=== PATIENT | male | born 1940 | race Caucasian/White ===

== ENCOUNTER 2017-08-14 10:46 | Emergency (ER) | payer OTHER ==
[~2017-08-14] VITALS: Ht 165.1 cm; Wt 90.7 kg
[2017-08-14 10:46] VITALS: BP 0/0
[2017-08-14] MEDS ORDERED: EPINEPHrine HCL 1 MG/10 ML SYRG IV ONE (10:47)
[2017-08-14] MEDS ORDERED: CALCIUM CHLOR(10%) 100MG/ML 10ML SYRINGE IV ONE (10:47)
[2017-08-14] MEDS ORDERED: SODIUM BICARBONATE 8.4 % INJ 50ML VIAL IV ONE ×2 (10:47→12:45)
[2017-08-14] MEDS ORDERED: SODIUM BICARBONATE 8.4% INJ 50ML SYRINGE ONE ×2 (10:53→10:58)
[2017-08-14] MEDS ORDERED: phytonadione 1 ML ONE (11:01)
[2017-08-14] MEDS ORDERED: PHYTONADIONE (VIT K)10 MG/ML 1ML VIAL SUBCUT ONE (11:15)
[2017-08-14 11:23] LABS: Eosinophils # (auto) 0.2 uL; Mean Corpuscular Hemoglobin 28.6 pg (28.0-32.0); Monocytes # (auto) 0.3 uL
[2017-08-14 11:24] LABS: Basophils # (auto) 0 uL; Basophils % (auto) 0.4 % (0.0-2.0); Eosinophils % (auto) 1.4 % (0.0-7.0); Hematocrit 45.8 % (41.0-53.0); Hemoglobin 12.8 g/dL (13.5-17.5); Lymphocytes % (auto) 35.8 % (10.0-50.0); Monocytes % (auto) 2.9 % (0.0-12.0); Neutrophils # (auto) 6.7 uL; Neutrophils % (auto) 59.5 % (37.0-80.0); Nucleated Red Blood Cells % 2.3 %; Platelet Count (auto) 179 10^3/uL (140-450); Red Blood Cells 4.49 10^6/uL (4.5-5.90); Red Cell Distribution Width 19.2 % (11.8-14.3); White Blood Cell 11.2 10^3/uL (4.4-10.8)
[2017-08-14 11:36] LABS: INR 3.68 (0.9-1.15); Partial Thromboplastin Time 61.1 sec (22.64-33.71); Prothrombin Time 40.6 sec (9.37-12.3)
[2017-08-14 11:42] LABS: Albumin 2.6 g/dL (3.4-5.0); BUN/Creatinine Ratio 5.8; Bilirubin, Total 0.3 mg/dL (0.2-1.0); Calcium 8.6 mg/dL (8.5-10.1); Total Protein 7.1 g/dL (6.4-8.2)
[2017-08-14 11:45] LABS: Potassium 5.6 mmol/L (3.5-5.1)
== END 2017-08-14 17:34 | disposition expired ==
LOC: EDBD 10:46 → EDSEX 10:46 → ER 10:46
DX: I46.9 Cardiac arrest, cause unspecified (principal); E11.9 Type 2 diabetes mellitus without complications; E78.5 Hyperlipidemia, unspecified; I10 Essential (primary) hypertension; Z88.0 Allergy status to penicillin
CPT/HCPCS: 31500; 36415; 80053; 83735; 84484; 85025; 85610; 85730; 86850; 86900; 86901; 92950; 96372; 99291; J0171; J3430